=== PATIENT | female | born 1975 | race Two or more races ===

== ENCOUNTER 2016-12-27 10:33 | Emergency (ER) | payer MEDICAID ==
[~2016-12-27] VITALS: Ht 162.6 cm; Wt 68.0 kg
[2016-12-27 10:54] VITALS: BP 118/84
[2016-12-27 11:19] LABS: Basophils # (auto) 0.1 uL; Basophils % (auto) 0.6 % (0.0-2.0); Eosinophils # (auto) 0.2 uL; Eosinophils % (auto) 1.7 % (0.0-7.0); Hematocrit 42.2 % (36.0-46.0); Hemoglobin 13.7 g/dL (12.2-16.2); Lymphocytes # (auto) 2.4 uL; Lymphocytes % (auto) 22.7 % (10.0-50.0); Mean Corpuscular Hemoglobin 28.1 pg (28.0-32.0); Mean Corpuscular Hgb Conc. 32.3 g/dL (32.0-36.0); Mean Corpuscular Volume 86.8 fL (80.0-100.0); Monocytes # (auto) 0.6 uL; Monocytes % (auto) 5.5 % (0.0-12.0); Neutrophils # (auto) 7.2 uL; Neutrophils % (auto) 69.5 % (37.0-80.0); Platelet Count (auto) 256 10^3/uL (140-450); Red Cell Distribution Width 14.3 % (11.8-14.3); White Blood Cell 10.4 10^3/uL (4.4-10.8)
[2016-12-27 11:32] LABS: BUN/Creatinine Ratio 26.8; Calcium 9.1 mg/dL (8.5-10.1); Potassium 3.9 mmol/L (3.5-5.1)
[2016-12-27] MEDS ORDERED: KETOROLAC TROMETH 60MG/2ML VIAL IM ONE (12:00)
== END 2016-12-27 12:23 | disposition home or self-care (01) ==
LOC: ER 10:33
DX: S29.012A Strain of muscle and tendon of back wall of thorax, initial encounter (principal); N39.0 Urinary tract infection, site not specified; R73.9 Hyperglycemia, unspecified; X58.XXXA Exposure to other specified factors, initial encounter; Y93.89 Activity, other specified; Y92.89 Other specified places as the place of occurrence of the external cause; Y99.8 Other external cause status
CPT/HCPCS: 36415; 71020; 80048; 81002; 85025; 96372; 99285; J1885

== ENCOUNTER 2019-04-30 10:51 | Emergency (ER) | payer MEDICAID ==
[~2019-04-30] VITALS: Ht 157.5 cm; Wt 67.6 kg
[2019-04-30 13:44] VITALS: BP 114/74
== END 2019-04-30 14:13 | disposition home or self-care (01) ==
LOC: ER 10:51
DX: J02.9 Acute pharyngitis, unspecified (principal); G89.29 Other chronic pain; M25.561 Pain in right knee; M25.562 Pain in left knee

== ENCOUNTER → 2021-04-03 | Emergency (ER) | payer MEDICAID ==
[~2021-04-03] VITALS: Ht 152.4 cm; Wt 47.6 kg
[2021-04-03 11:53] VITALS: BP 147/89
== END | disposition left against medical advice (07) ==
LOC: ER 11:41
DX: R10.13 Epigastric pain (principal); Z53.21 Procedure and treatment not carried out due to patient leaving prior to being seen by health care provider

== ENCOUNTER 2023-07-27 18:42 | Emergency (ER) | payer MEDICAID ==
[~2023-07-27] VITALS: Ht 157.5 cm; Wt 72.7 kg
[2023-07-27 18:59] VITALS: BP 114/81; PULSE 94; RESP 18; O2SAT 97
[2023-07-27 20:10] LABS: Urine Bacteria FEW /hpf (None Seen); Urine Blood Negative /uL (Negative); Urine Clarity Turbid (Clear); Urine Color Yellow (Yellow); Urine Mucus FEW (None Seen); Urine Protein, UAD TRACE (Negative); Urine Specific Gravity 1.031 (1.001-1.035); Urine Urobilinogen Normal (Negative); Urine WBC 3 /hpf (0 - 5)
== END 2023-07-27 23:44 | disposition left against medical advice (07) ==
LOC: ER 18:42
DX: R10.11 Right upper quadrant pain (principal); R10.12 Left upper quadrant pain; Z53.21 Procedure and treatment not carried out due to patient leaving prior to being seen by health care provider
CPT/HCPCS: 81001